=== PATIENT | male | born 1945 | race Caucasian/White ===

== ENCOUNTER 2024-08-08 13:44 | Emergency (ER) | payer MEDICARE, OTHER ==
[2024-08-08 14:31] LABS: Absolute Basophils 0.1 K/uL (0-0.5); Absolute Eosinophils 0.1 K/uL (0-0.5); Absolute Lymphocytes (CBC) 1.4 K/uL (0.7-4.9); Absolute Monocytes 0.4 K/uL (0.1-1.3); Absolute Neutrophil 3.8 K/uL (1.8-8.0); Basophils % 1.3 % (0-1.3); Eosinophils % 1.6 % (0-4.4); Hematocrit 35.4 % (39.6-49.0); Hemoglobin 12.3 g/dL (13.6-17.9); Lymphocytes % 23.6 % (15.3-44.8); MCH 31.4 pg (27.0-35.0); MCHC 34.7 g/dL (32.0-36.0); MCV 90.6 fL (80-100); MPV 7.8 fL (7.6-11.3); Monocytes % 7.3 % (3.3-12.3); Neutrophils % 66.2 % (41.7-73.7); Nucleated Red Blood Cells % 0.1 % (0-0); Platelets 222 thou/uL (152-406); RBC Red Blood Cell Count 3.91 M/uL (4.33-5.43); Red Cell Distribution Width 13.4 % (12.1-15.2)
--- NOTE | 2024-08-08 14:32 | RAD REPORT ---
EXAM: CT brain without contrast HISTORY: Ataxia COMPARISON: 2014 TECHNIQUE: Multiple contiguous axial images were obtained and a CT of the brain without contrast. Sagittal and coronal reformats were performed. Automated exposure control, adjustment of the mA and/or kV according to patient size, and/or itera tive reconstruction. Unless otherwise specified, incidental findings do not require dedicated imaging follow-u FINDINGS: Small increased density left parietal lobe probably calcification. 3.5 cm area of gliosis right parietal lobe Ventricles are normal caliber No extra-axial fluid collection noted No fluid within the visualized sinuses or mastoids noted. IMPRESSION: Small area of increased density left parietal lobe probably calcification. A bleed is considered less likely. If the patient's symptoms do not improve then a follow-up MRI would be recommended. No acute abnormality suspected. Jaleesa Benjamin from the emergency room was contacted at 2:23 PM August 08, 2024
[2024-08-08 14:33] LABS: PT Prothrombin Time 14.3 SECONDS (9.4-12.5); PTT, Activated Partial Thromb 32.9 SECONDS (24.3-36.9); Protime INR 1.29
--- NOTE | 2024-08-08 14:48 | RAD REPORT ---
EXAMINATION: CTA HEAD CLINICAL INDICATION: Ataxia TECHNIQUE: Axial CT images were obtained through the head after 100 cc Isovue-370 intravenous contras t utilizing angiographic protocol with 3D post-processing (maximum intensity projection images, volume rendered images and/or shaded surface rendered images). One or more of the following dose red uction techniques were used: Automated exposure control, adjustment of the mA and/or kV according to patient size, and/or iterative reconstruction. Unless otherwise specified, incidental findings do not require dedicated imaging follow-up. COMPARISON: None FINDINGS: Distal internal carotid, basilar, anterior cerebral, middle cerebral and posterior cerebral arteries do not demonstrate a significant stenosis An aneurysm not noted IMPRESSION: No acute vascular abnormality displayed
--- NOTE | 2024-08-08 14:48 | RAD REPORT ---
EXAMINATION: Neck Angio CLINICAL INDICATION: Ataxia. TECHNIQUE: Axial CT images were obtained from the aortic arch to the skull base after intravenous adm inistration of 100 cc Isovue-370 utilizing angiographic protocol. Multiplanar reformats, as well as 3D post-processing (maximum intensity projection images, volume rendered images and/or shaded surface rendered images) were generated and reviewed. One or more of the following dose reduction techniques were used: Automated exposure control, adjustment of the mA and/or kV according to patient size, and/or iterative reconstruction. Unless otherwise specified, incidental findings do not require dedicated imaging follow-up. COMPARISON: No prior exam. FINDINGS: The visualized aortic arch and great vessels do not demonstrate a significant abnormality Moderate calcified plaque proximal left internal carotid artery. Moderate calcified plaque proximal right internal carotid artery. Vertebral arteries unremarkable. No dissection/significant stenosis. Remainder of the arteries do not demonstrate a Methods for NASCET criteria: mild stenosis, 0% to 49%; moderate, 50% to 69%; severe stenosis, 70% to 99% IMPRESSION: Moderate plaque within the proximal internal carotid arteries bilaterally resulting in an approximate ly 60-65% stenosis
[2024-08-08 14:51] LABS: ALT/SGPT 23 U/L (16-61); AST/SGOT 18 U/L (15-37); Albumin 3.4 g/dL (3.4-5.0); Alkaline Phosphatase 64 U/L (45-117); Anion Gap 8.4 mEq/L (5.0-15.0); BUN Blood Urea Nitrogen 19 mg/dL (7-18); Bicarbonate 27 mEq/L (21-32); Bilirubin Direct < 0.2 mg/dL (0-0.2); Bilirubin Indirect, Calculated 0.3 mg/dL (0.2-0.8); Bilirubin Total 0.5 mg/dL (0.2-1.0); Globulin 3.4 g/dL (2.3-3.5); Glomerular Filtration Rate 48 ml/min (=/>90); Glucose Level 134 mg/dL (74-106); Magnesium 2.1 mg/dL (1.6-2.4); Potassium 4.4 mEq/L (3.5-5.1); Protein, Total 6.8 g/dL (6.4-8.2); Sodium Level 138 mEq/L (136-145); Troponin High Sensitivity 5.4 pg/mL (<58.9)
[2024-08-08] MEDS ORDERED: NA CHLORIDE 0.9% 1,000 ML ONE (15:02)
--- NOTE | 2024-08-08 15:31 | RAD REPORT ---
Procedure: Chest Single View History: CVA Comparison: 2019 Findings: The lungs appear clear of acute infiltrate. No significant pleural effusion noted. The heart is normal size. Moderate hiatal hernia. IMPRESSION: No acute abnormality is displayed.
[2024-08-08 16:48] LABS: Specific Gravity 1.029 (1.005-1.030); Sqamous Epithelial None Seen /HPF (None Seen); Urine Bacteria None Seen /HPF (<20); Urine Bilirubin NEGATIVE (Negative); Urine Blood Negative (Negative); Urine Clarity Clear (Clear); Urine Color Light-Yellow (Yellow); Urine Culture Reflex Order NOT NEEDED; Urine Glucose NEGATIVE (Negative); Urine Ketones NEGATIVE (Negative); Urine Micro Reflex YN NO BILL MICROSCOPIC; Urine Mucus Slight /HPF (None Seen); Urine Nitrite NEGATIVE (Negative); Urine Protein NEGATIVE (Negative); Urine RBC <5 /HPF (None Seen); Urine Urobilinogen Normal (Normal); Urine WBC <5 /HPF (<5)
[2024-08-08 16:54] LABS: Barbiturates NEGATIVE (NEGATIVE); Benzodiazepines NEGATIVE (NEGATIVE); Cocaine NEGATIVE (NEGATIVE); METHAMPHETAM NEGATIVE (NEGATIVE); Methadone NEGATIVE (NEGATIVE); Opiates NEGATIVE (NEGATIVE); Phencyclidine NEGATIVE (NEGATIVE); THC Cannibis NEGATIVE (NEGATIVE)
--- NOTE | 2024-08-08 17:23 | RAD REPORT ---
EXAMINATION: MRI BRAIN WITHOUT CONTRAST CLINICAL INDICATION: Dizziness TECHNIQUE: Multiplanar multisequence MR images of the brain were obtained without intravenous contras t. Unless otherwise specified, incidental findings do not require dedicated imaging follow-up. COMPARISON: Head CT August 08, 2024. FINDINGS: Abnormal signal right parietal lobe having the appearance of gliosis. The adjacent right lateral vent ricle is dilated secondary to loss. Gradient echo sequences demonstrates areas of low signal within the right parietal lobe as well as a few within the left cerebrum compatible with hemosiderin due to old blood. No evidence of an acute bleed. Diffusion weighted/ADC mapping do not demonstrate evidence of an acute infarction. No hydrocephalus. No extra-axial fluid collection. No fluid within the sinuses/mastoid seen IMPRESSION: No acute abnormalities displayed
--- NOTE | 2024-08-08 17:58 | EDPHYS ---
Physician Documentation [facility] Name: Israel Cantor Age: 79 yrs Sex: Male : 1945 Arrival Date: 08/08/2024 Time: 13:44 Bed 13 Private MD: ED Physician Raymond Florence HPI: 08/08 14:10 This 79 yrs old Male presents to ER via Ambulatory with complaints of Dizziness, sb4 Trouble Remembering things. 14:10 Patient states that he has been having issues remembering things for the past few sb4 months but today when he was at work he stated that he became dizzy and he could barely remember how to get home. states that he is not acting himself, seems disoriented. Patient is a poor historian, cannot really characterize his symptoms. He denies any blurry vision, gait disturbance, imbalance, chest pain, shortness of breath, nausea, vomiting. He is unsure when his symptoms started, maybe around 8:00 this morning. Historical: - PMHx: 13:58 Hypertensive disorder; clotting disorder; tm6 - PSHx: 13:58 None; tm6 - Immunization history:: Adult Immunizations up to date. - Infectious Disease History:: Denies. - Social history:: Smoking status: Patient denies any tobacco usage or history of. ROS: 14:10 Constitutional: Negative for fever, chills, and weight loss, sb4 14:10 Neuro: Positive for dizziness, 14:10 All other systems are negative, Exam: 14:10 Head/Face: Normocephalic, atraumatic. Eyes: Extra-ocular motions intact. Periorbital sb4 areas with no swelling, redness, or edema. ENT: Mucous membranes moist. Cardiovascular: Regular rate and rhythm with a normal S1 and S2. Respiratory: Lungs have equal breath sounds bilaterally, clear to auscultation and percussion. No rales, rhonchi or wheezes noted. No increased work of breathing, no retractions or nasal flaring. Abdomen/GI: Soft, non-tender, no distension. Skin: Warm, dry with normal turgor. Normal color with no rashes, no lesions, and no evidence of cellulitis. MS/ Extremity: Pulses equal, no cyanosis. Neurovascular intact. Full, normal range of motion. 14:10 Constitutional: The patient appears in no acute distress, alert, awake, 14:10 Neuro: Orientation: to person, place, time \T\ situation. Motor: moves all fours, Sensation: is normal, Gait: is steady, at a normal pace, without difficulty, seizure activity, is not displayed by the patient, Abnormal movements: there are no abnormal movements, Vital Signs: 13:52 BP 127 / 65; Pulse 81; Resp 17; Temp 98.9; Pulse Ox 98% on R/A; MAP 82 mmHg; Weight tm6 81.65 kg; Height 5 ft. 11 in. ; Pain 0/10; 15:11 BP 122 / 67; Pulse 61; Resp 17; Pulse Ox 99% on R/A; rs5 18:00 BP 125 / 70; Pulse 65; Resp 17; Pulse Ox 99% on R/A; rs5 13:52 Body Mass Index 25.10 (81.65 kg, 180.34 cm) tm6 13:52 Pain Scale: Adult tm6 NIH Stroke Scale Scores: 14:22 NIHSS Score: 0 sb4 14:33 NIHSS Score: 0 es3 15:20 NIHSS Score: 0 rs5 MDM: 13:47 Patient medically screened. sb4 23:57 Data reviewed: vital signs, nurses notes, lab test result(s), EKG, radiologic studies, sb4 and as a result, I will discharge patient. Consideration of Admission/Observation Escalation of care including admission/observation considered. Historians other than the Patient: Spouse/Significant Other: . Daughter/Son: daughter. Care significantly affected by the following chronic conditions: Hypertension. Counseling: I had a detailed discussion with the patient and/or guardian regarding the historical points, exam findings, and any diagnostic results supporting the discharge/admit diagnosis, lab results, radiology results, the need for outpatient follow up, a neurologist, to return to the emergency department if symptoms worsen or persist or if there are any questions or concerns that arise at home. ED course: discussed at length with patient and family member the negative results of workup. states that it is possible he had a TIA but additionally could be developing dementia. I offered admission for further workup, neuro consult, and monitoring, but patient declined. He wishes to go home and will follow up with PCP and neuro. 08/08 14:02 Order name: Basic Metabolic Panel; Complete Time: 14:52 sb4 08/08 14:02 Order name: CBC with Diff; Complete Time: 14:52 4 08/08 14:02 Order name: Hepatic Function; Complete Time: 14:52 4 08/08 14:02 Order name: High Sensitivity Troponin; Complete Time: 14:52 4 08/08 14:02 Order name: Magnesium; Complete Time: 14:52 4 08/08 14:02 Order name: Protime (+inr); Complete Time: 14:34 4 08/08 14:02 Order name: Ptt, Activated; Complete Time: 14:34 4 08/08 14:02 Order name: UDS; Complete Time: 16:55 4 08/08 14:16 Order name: Glucose, Ancillary Testing; Complete Time: 14:17 EDMS 08/08 14:21 Order name: UAM; Complete Time: 16:49 4 08/08 14:33 Order name: Glucose, Ancillary Testing; Complete Time: 14:34 EDMS 08/08 14:57 Order name: CREATININE WHOLE BLOOD; Complete Time: 14:58 EDMS 08/08 14:02 Order name: CT Neck Angio; Complete Time: 14:49 4 08/08 14:02 Order name: CT Stroke Brain w/o Contrast; Complete Time: 14:34 4 08/08 14:02 Order name: Stroke CXR 1 View; Complete Time: 15:32 4 08/08 14:06 Order name: Head angio; Complete Time: 14:49 EDMS 08/08 15:37 Order name: Brain Wo Cont; Complete Time: 17:27 EDMS 08/08 14:02 Order name: EKG; Complete Time: 14:02 4 08/08 14:02 Order name: Accucheck; Complete Time: 14:17 4 08/08 14:02 Order name: Cardiac monitoring; Complete Time: 15:01 4 08/08 14:02 Order name: EKG - Nurse/Tech; Complete Time: 15:01 4 08/08 14:02 Order name: IV Saline Lock; Complete Time: 15:02 4 08/08 14:02 Order name: Labs collected and sent; Complete Time: 15:02 4 08/08 14:02 Order name: O2 Per Protocol; Complete Time: 15:02 4 08/08 14:02 Order name: O2 Sat Monitoring; Complete Time: 15:02 sb4 08/08 14:02 Order name: Stroke Swallow Screen; Complete Time: 15:02 sb4 EC:40 Rate is 75 beats/min. Rhythm is regular, Sinus Rhythm. MS interval is normal at 192 sb4 msec. QRS interval is normal at 92 msec. QT interval is normal at 418 msec. No Q waves. T waves are Normal. No ST changes noted. Clinical impression: No evidence of ischemia. Interpreted by me. Reviewed by me. Administered Medications: 15:05 Drug: NS 0.9% IV 1000 ml IV at 1 bolus Per protocol; to be given as a bolus over 60 rs5 minutes Route: IV; Rate: 1 bolus; Site: right antecubital; 18:07 Follow up: Response: No adverse reaction; IV Status: Completed infusion tm6 Disposition Summary: 08/08/24 17:57 Discharge Ordered Notes: Location: Home sb4 Problem: new sb4 Symptoms: are unchanged sb4 Condition: Stable sb4 Diagnosis - Transient alteration of awareness sb4 Followup: sb4 - With: Hao Novak MD - When: 2 - 3 days - Reason: Recheck today's complaints, Re-evaluation by your physician Discharge Instructions: - Discharge Summary Sheet sb4 - Transient Ischemic Attack, [id number] sb4 Forms: - Patient Portal Instructions sb4 - Leadership Thank You Letter sb4 NIH Stroke Scale - NIH Stroke Score Date: 08/08/2024 Time: 14:22 Total Score = 0 10. Dysarthria (speech clarity - read or repeat words) - 0(Normal) 11. Extinction and Inattention (visual/tactile/auditory/spatial/personal) - 0(No abnormality) 1a. Level of Consciousness (LOC) - 0(Alert) 1b. Level of Consciousness (LOC) (Month \T\ Age) - 0(Both) 1c. LOC Commands (Open \T\ Closes Eyes/Catalogue Maker) - 0(Both) 2. Best Gaze (Lateral Gaze Paresis) - 0(Normal) 3. Visual Field Loss - 0(No visual loss) 4. Facial Palsy - 0(Normal) 5a. Left Arm: Motor (10-second hold) - 0(No drift) 5b. Right Arm: Motor (10-second hold) - 0(No drift) 6a. Left Leg: Motor (5-second hold - always test supine) - 0(No drift) 6b. Right Leg: Motor (5-second hold - always test supine) - 0(No drift) 7. Limb Ataxia (finger/nose \T\ heel/renteria - test with eyes open) - 0(Absent) 8. Sensory Loss (pinprick arms/legs/face) - 0(Normal) 9. Best Language: Aphasia (description/naming/reading) - 0(No aphasia) Initials: sb4 NIH Stroke Scale - NIH Stroke Score Date: 08/08/2024 Time: 14:33 Total Score = 0 10. Dysarthria (speech clarity - read or repeat words) - 0(Normal) 11. Extinction and Inattention (visual/tactile/auditory/spatial/personal) - 0(No abnormality) 1a. Level of Consciousness (LOC) - 0(Alert) 1b. Level of Consciousness (LOC) (Month \T\ Age) - 0(Both) 1c. LOC Commands (Open \T\ Closes Eyes/Catalogue Maker) - 0(Both) 2. Best Gaze (Lateral Gaze Paresis) - 0(Normal) 3. Visual Field Loss - 0(No visual loss) 4. Facial Palsy - 0(Normal) 5a. Left Arm: Motor (10-second hold) - 0(No drift) 5b. Right Arm: Motor (10-second hold) - 0(No drift) 6a. Left Leg: Motor (5-second hold - always test supine) - 0(No drift) 6b. Right Leg: Motor (5-second hold - always test supine) - 0(No drift) 7. Limb Ataxia (finger/nose \T\ heel/renteria - test with eyes open) - 0(Absent) 8. Sensory Loss (pinprick arms/legs/face) - 0(Normal) 9. Best Language: Aphasia (description/naming/reading) - 0(No aphasia) Initials: es3 NIH Stroke Scale - NIH Stroke Score Date: 08/08/2024 Time: 15:20 Total Score = 0 10. Dysarthria (speech clarity - read or repeat words) - 0(Normal) 11. Extinction and Inattention (visual/tactile/auditory/spatial/personal) - 0(No abnormality) 1a. Level of Consciousness (LOC) - 0(Alert) 1b. Level of Consciousness (LOC) (Month \T\ Age) - 0(Both) 1c. LOC Commands (Open \T\ Closes Eyes/Catalogue Maker) - 0(Both) 2. Best Gaze (Lateral Gaze Paresis) - 0(Normal) 3. Visual Field Loss - 0(No visual loss) 4. Facial Palsy - 0(Normal) 5a. Left Arm: Motor (10-second hold) - 0(No drift) 5b. Right Arm: Motor (10-second hold) - 0(No drift) 6a. Left Leg: Motor (5-second hold - always test supine) - 0(No drift) 6b. Right Leg: Motor (5-second hold - always test supine) - 0(No drift) 7. Limb Ataxia (finger/nose \T\ heel/renteria - test with eyes open) - 0(Absent) 8. Sensory Loss (pinprick arms/legs/face) - 0(Normal) 9. Best Language: Aphasia (description/naming/reading) - 0(No aphasia) Initials: rs5 Addendum: 08/10/2024 07:04 I was immediately available for consultation during this patient's visit. I did ec2 not personally see the patient or discuss the patient with the DONTA. . Signatures: Dispatcher [employer] Jaleesa Vazquez PA-C PA-C sb4 Irvin Mcqueen, REGINALD RN rs5 Raymond Florence MD MD ec2 Jose Mendoza RN RN tm6 Corrections: (The following items were deleted from the chart) 08/08 14:17 14:02 NPO ordered. sb4 sb4 15:37 15:06 MR STROKE PROTOCOL+MRI.RAD.BRZ ordered. EDMS EDMS
--- NOTE | 2024-08-08 17:58 | ER ---
Nurse's Notes [facility] Name: Israel Cantor Age: 79 yrs Sex: Male : 1945 Arrival Date: 08/08/2024 Time: 13:44 Bed 13 Private MD: Diagnosis: Transient alteration of awareness Presentation: 08/08 13:53 Chief complaint: Patient states: this morning about 0830 sometime I started to feel tm6 dizzy, lightheaded, my eyes feel like they are moving around. Trouble remembering things, but has been on and off for months. Coronavirus screen: Client denies travel out of the [place] in the last 14 days. Ebola Screen: Patient negative for fever greater than or equal to 101.5 degrees Fahrenheit, and additional compatible Ebola Virus Disease symptoms Patient denies exposure to infectious person. Patient denies travel to an Ebola-affected area in the 21 days before illness onset. No symptoms or risks identified at this time. Initial Sepsis Screen: Does the patient meet any 2 criteria? No. Patient's initial sepsis screen is negative. Does the patient have a suspected source of infection? No. Patient's initial sepsis screen is negative. Risk Assessment: Do you want to hurt yourself or someone else?. Onset of symptoms was August 08, 2024. 13:53 Method Of Arrival: Ambulatory tm6 13:53 Acuity: NOEMY 3 tm6 Triage Assessment: 13:55 General: Appears in no apparent distress. Behavior is calm, cooperative. Pain: Denies tm6 pain. EENT: Reports "eyes moving around" , denies blurry vision. Neuro: Level of Consciousness is awake, alert, obeys commands, Oriented to person, place, time, situation, Reports dizziness, since 0830 not feeling right. Cardiovascular: Reports lightheadedness, Patient's skin is warm and dry. Respiratory: Airway is patent Respiratory effort is even, unlabored, Respiratory pattern is regular, symmetrical. GI: No signs and/or symptoms were reported involving the gastrointestinal system. Abdomen is flat, non-distended. : No signs and/or symptoms were reported regarding the genitourinary system. Derm: No signs and/or symptoms reported regarding the dermatologic system. Musculoskeletal: No signs and/or symptoms reported regarding the musculoskeletal system. Historical: - PMHx: 13:58 Hypertensive disorder; clotting disorder; tm6 - PSHx: 13:58 None; tm6 - Immunization history:: Adult Immunizations up to date. - Infectious Disease History:: Denies. - Social history:: Smoking status: Patient denies any tobacco usage or history of. Screenin:44 [facility] ED Fall Risk Assessment (Adult) History of falling in the last 3 months, rs5 including since admission Yes- single mechanical fall (1 pt) Confusion or Disorientation No (0 pts) Intoxicated or Sedated No (0 pts) Impaired Gait Yes (1 pt) Mobility Assist Device Used Yes (1 pt) Altered Elimination No (0 pt) Score/Fall Risk Level 3 or more points = High Risk Oriented to surroundings, Maintained a safe environment, Hourly rounding (assess needs \\T\\ fall precautionary measures) done, Utilized family, sitter, or virtual outside sales account executive as indicated. 13:44 Abuse screen: Denies threats or abuse. Nutritional screening: No deficits noted. rs5 Tuberculosis screening: No symptoms or risk factors identified. 14:33 VAN Screening: Arm Drift: Patient shows no arm weakness. Patient is VAN negative. es3 Visual Disturbance: No visual disturbance noted. Aphasia: No aphasia noted. Neglect: No neglect noted. [place] Swallow Protocol Brief Cognitive Screen What is your name? Normal, Where are you right now? Normal, What year is it? Normal. Oral Mechanism Examination Facial Symmetry: Normal, Motion: Normal, Lip Closure: Normal, Oral Mechanism Result: Normal. 3 oz Water Swallow Challenge: Pt able to drink all water without stopping, coughing, choking or throat clearing: Yes Result: PASS MD Notified: Raymond Florence MD. Assessment: 14:17 General: Appears in no apparent distress. comfortable, Behavior is calm, cooperative. rs5 Pain: Denies pain. Neuro: Level of Consciousness is awake, alert, obeys commands, Oriented to person, place, time, situation, Folder Operator are equal bilaterally Moves all extremities. Gait is unsteady, Speech is normal, Facial symmetry appears normal, Pupils are PERRLA, Pupil Size: 3 mm Intact Reports dizziness. 14:17 Cardiovascular: Patient's skin is warm and dry. Respiratory: Airway is patent rs5 Respiratory effort is even, unlabored, Respiratory pattern is regular, symmetrical. GI: Abdomen is round non-distended, Abd is soft and non tender X 4 quads. : No signs and/or symptoms were reported regarding the genitourinary system. EENT: No signs and/or symptoms were reported regarding the EENT system. Derm: Skin is intact, Skin is pink, warm \\T\\ dry. Musculoskeletal: Range of motion: intact in all extremities, pt reports generalized weakness. 15:11 Reassessment: Patient and/or family updated on plan of care and expected duration. Pain rs5 level reassessed. Patient is alert, oriented x 3, equal unlabored respirations, skin warm/dry/pink. 16:20 Reassessment: Patient and/or family updated on plan of care and expected duration. Pain rs5 level reassessed. Patient is alert, oriented x 3, equal unlabored respirations, skin warm/dry/pink. Vital Signs: 13:52 BP 127 / 65; Pulse 81; Resp 17; Temp 98.9; Pulse Ox 98% on R/A; MAP 82 mmHg; Weight tm6 81.65 kg; Height 5 ft. 11 in. ; Pain 0/10; 15:11 BP 122 / 67; Pulse 61; Resp 17; Pulse Ox 99% on R/A; rs5 18:00 BP 125 / 70; Pulse 65; Resp 17; Pulse Ox 99% on R/A; rs5 13:52 Body Mass Index 25.10 (81.65 kg, 180.34 cm) tm6 13:52 Pain Scale: Adult tm6 NIH Stroke Scale Scores: 14:22 NIHSS Score: 0 sb4 14:33 NIHSS Score: 0 es3 15:20 NIHSS Score: 0 rs5 ED Course: 13:46 Patient arrived in ED. mg5 13:47 Jaleesa Benjamin PA-C is PHCP. sb4 13:47 Raymond Florence MD is Attending Physician. sb4 13:55 Triage completed. tm6 13:55 Arm band placed on left wrist. tm6 14:15 CT Stroke Brain w/o Contrast In Process Unspecified. EDMS 14:17 Patient has correct armband on for positive identification. Placed in gown. Bed in low rs5 position. Call light in reach. Side rails up X2. 14:20 No provider procedures requiring assistance completed. Inserted saline lock: 22 gauge rs5 in right antecubital area, using aseptic technique. 14:22 CT Neck Angio In Process Unspecified. EDMS 14:22 Head angio In Process Unspecified. EDMS 15:01 Irvin Mcqueen, RN is Primary Nurse. rs5 15:16 Stroke CXR 1 View In Process Unspecified. EDMS 16:55 Brain Wo Cont In Process Unspecified. EDMS 17:57 Hao Novak MD is Referral Physician. sb4 18:00 Provided Education on: discharge instructions . rs5 18:07 IV discontinued, intact, bleeding controlled, No redness/swelling at site. Pressure tm6 dressing applied. Administered Medications: 15:05 Drug: NS 0.9% IV 1000 ml IV at 1 bolus Per protocol; to be given as a bolus over 60 rs5 minutes Route: IV; Rate: 1 bolus; Site: right antecubital; 18:07 Follow up: Response: No adverse reaction; IV Status: Completed infusion tm6 Medication: 14:17 VIS not applicable for this client. rs5 Outcome: 17:57 Discharge ordered by MD. sb4 18:07 Discharged to home ambulatory, tm6 18:07 Condition: stable 18:07 Discharge instructions given to patient, Instructed on discharge instructions, follow up and referral plans. Demonstrated understanding of instructions, follow-up care, 18:07 Patient left the ED. tm6 NIH Stroke Scale - NIH Stroke Score Date: 08/08/2024 Time: 14:22 Total Score = 0 10. Dysarthria (speech clarity - read or repeat words) - 0(Normal) 11. Extinction and Inattention (visual/tactile/auditory/spatial/personal) - 0(No abnormality) 1a. Level of Consciousness (LOC) - 0(Alert) 1b. Level of Consciousness (LOC) (Month \\T\\ Age) - 0(Both) 1c. LOC Commands (Open \\T\\ Closes Eyes/Laboratory Technologist) - 0(Both) 2. Best Gaze (Lateral Gaze Paresis) - 0(Normal) 3. Visual Field Loss - 0(No visual loss) 4. Facial Palsy - 0(Normal) 5a. Left Arm: Motor (10-second hold) - 0(No drift) 5b. Right Arm: Motor (10-second hold) - 0(No drift) 6a. Left Leg: Motor (5-second hold - always test supine) - 0(No drift) 6b. Right Leg: Motor (5-second hold - always test supine) - 0(No drift) 7. Limb Ataxia (finger/nose \\T\\ heel/renteria - test with eyes open) - 0(Absent) 8. Sensory Loss (pinprick arms/legs/face) - 0(Normal) 9. Best Language: Aphasia (description/naming/reading) - 0(No aphasia) Initials: sb4 NIH Stroke Scale - NIH Stroke Score Date: 08/08/2024 Time: 14:33 Total Score = 0 10. Dysarthria (speech clarity - read or repeat words) - 0(Normal) 11. Extinction and Inattention (visual/tactile/auditory/spatial/personal) - 0(No abnormality) 1a. Level of Consciousness (LOC) - 0(Alert) 1b. Level of Consciousness (LOC) (Month \\T\\ Age) - 0(Both) 1c. LOC Commands (Open \\T\\ Closes Eyes/Laboratory Technologist) - 0(Both) 2. Best Gaze (Lateral Gaze Paresis) - 0(Normal) 3. Visual Field Loss - 0(No visual loss) 4. Facial Palsy - 0(Normal) 5a. Left Arm: Motor (10-second hold) - 0(No drift) 5b. Right Arm: Motor (10-second hold) - 0(No drift) 6a. Left Leg: Motor (5-second hold - always test supine) - 0(No drift) 6b. Right Leg: Motor (5-second hold - always test supine) - 0(No drift) 7. Limb Ataxia (finger/nose \\T\\ heel/renteria - test with eyes open) - 0(Absent) 8. Sensory Loss (pinprick arms/legs/face) - 0(Normal) 9. Best Language: Aphasia (description/naming/reading) - 0(No aphasia) Initials: es3 NIH Stroke Scale - NIH Stroke Score Date: 08/08/2024 Time: 15:20 Total Score = 0 10. Dysarthria (speech clarity - read or repeat words) - 0(Normal) 11. Extinction and Inattention (visual/tactile/auditory/spatial/personal) - 0(No abnormality) 1a. Level of Consciousness (LOC) - 0(Alert) 1b. Level of Consciousness (LOC) (Month \\T\\ Age) - 0(Both) 1c. LOC Commands (Open \\T\\ Closes Eyes/Laboratory Technologist) - 0(Both) 2. Best Gaze (Lateral Gaze Paresis) - 0(Normal) 3. Visual Field Loss - 0(No visual loss) 4. Facial Palsy - 0(Normal) 5a. Left Arm: Motor (10-second hold) - 0(No drift) 5b. Right Arm: Motor (10-second hold) - 0(No drift) 6a. Left Leg: Motor (5-second hold - always test supine) - 0(No drift) 6b. Right Leg: Motor (5-second hold - always test supine) - 0(No drift) 7. Limb Ataxia (finger/nose \\T\\ heel/renteria - test with eyes open) - 0(Absent) 8. Sensory Loss (pinprick arms/legs/face) - 0(Normal) 9. Best Language: Aphasia (description/naming/reading) - 0(No aphasia) Initials: rs5 Signatures: Dispatcher [employer] EDJaleesa Nair PA-C PA-C sb4 Irvin Mcqueen RN RN rs5 Devi Singh mg5 Jose Mendoza RN RN tm6 Sheyla Matthews RN RN es3 Corrections: (The following items were deleted from the chart) 13:56 13:53 Chief complaint: Patient states: this morning sometime I started to feel tm6 dizzy, lightheaded, my eyes feel like they are moving around. Trouble remembering things, but has been on and off for months tm6 15:12 13:44 [facility] ED Fall Risk Assessment (Adult) History of falling in the last 3 rs5 months, including since admission Yes- single mechanical fall (1 pt) Confusion or Disorientation Yes (5 pts) Intoxicated or Sedated No (0 pts) Impaired Gait Yes (1 pt) Mobility Assist Device Used Yes (1 pt) Altered Elimination No (0 pt) Score/Fall Risk Level 3 or more points = High Risk Oriented to surroundings, Maintained a safe environment, Hourly rounding (assess needs \\T\\ fall precautionary measures) done, Utilized family, sitter, or virtual outside sales account executive as indicated rs5 18:36 16:20 BP 125 / 70; Pulse 65bpm; Resp 17bpm; Pulse Ox 99% RA; rs5 rs5
[2024-08-08 21:23] VITALS: BP 127/65; TEMP 98.9; O2SAT 98
--- NOTE | 2024-08-14 12:16 | EKG ---
Test Date: 2024-08-08 Test Time: 14:38:44 Dance Historian: ZAIDA MEASUREMENT RESULTS: Intervals: Rate: 75 CT: 192 QRSD: 92 QT: 418 QTc: 466 [place]: P: 69 CT: 192 QRS: -10 T: 18 INTERPRETIVE STATEMENTS: Sinus rhythm with premature supraventricular complexes Otherwise normal ECG Compared to ECG 09/11/2018 11:48:32 Atrial premature complex(es) now present Electronically Signed On 08-14-24 12:01:08 CDT by Reed Hernandez
== END 2024-08-08 18:07 | disposition home or self-care (01) ==
LOC: ER 13:44
DX: R40.4 Transient alteration of awareness (principal); I10 Essential (primary) hypertension
CPT/HCPCS: 93005; 85025; 81001; 80048; 36415; 83735; 85610; 82565; 82947 ×2; 80076; 85730; 84484; 80307; 70496; 70498; 70450; 71045; 70551; Q9967; J7030; 96360; 96361; 99284

== ENCOUNTER 2025-01-24 08:59 | Emergency (ER) | payer OTHER ==
--- NOTE | 2025-01-24 09:44 | RAD REPORT ---
EXAMINATION: TWO VIEW CHEST XR CLINICAL INDICATION: Male, 79 years old. [facility] MAIN PAIN Bed Name: 1 TECHNIQUE: 2 view radiographs of the chest were performed. COMPARISON: 08/08/2024 FINDINGS: Developing peripheral left basal streaky opacities could relate to progressive atelectasis or develop ing pneumonia. Background hyper inflation. Suboptimal inspiratory effort somewhat limits evaluation. No pneumothorax or sizable effusion. The heart is normal in size. Mediastinal contours ar e unchanged with large hiatal hernia again seen. IMPRESSION: Developing left basal streaky opacities could relate to progressive atelectasis or developing pneumon ia.
[2025-01-24 10:00] LABS: Absolute Basophils 0.1 K/uL (0-0.5); Absolute Eosinophils 0.1 K/uL (0-0.5); Absolute Lymphocytes (CBC) 1.5 K/uL (0.7-4.9); Absolute Monocytes 0.4 K/uL (0.1-1.3); Absolute Neutrophil 3.8 K/uL (1.8-8.0); Basophils % 1.3 % (0-1.3); Eosinophils % 2.2 % (0-4.4); Hematocrit 38.6 % (39.6-49.0); Hemoglobin 13.1 g/dL (13.6-17.9); MCH 30.5 pg (27.0-35.0); MCHC 33.9 g/dL (32.0-36.0); MPV 7.6 fL (7.6-11.3); Monocytes % 7.5 % (3.3-12.3); Nucleated Red Blood Cells % 0.1 % (0-0); Platelets 275 thou/uL (152-406); RBC Red Blood Cell Count 4.29 M/uL (4.33-5.43); Red Cell Distribution Width 14.1 % (12.1-15.2)
[2025-01-24] MEDS ORDERED: ONDANSETRON 4 MG/2 ML VIAL ONE (10:08)
[2025-01-24] MEDS ORDERED: NA CHLORIDE 0.9% 1,000 ML ONE (10:09)
[2025-01-24] MEDS ORDERED: MAGNES/ALUMIN/SIMET 30ML UCUP ONE (10:09)
[2025-01-24] MEDS ORDERED: LIDOCAINE VISCOUS 2% 10ML ORAL SOLN ONE (10:09)
[2025-01-24] MEDS ORDERED: KETOROLAC 30 MG/ML INJ ONE (10:09)
[2025-01-24 10:14] LABS: Albumin 3.5 g/dL (3.4-5.0); Anion Gap 11.3 mEq/L (5.0-15.0); Bilirubin Total 0.5 mg/dL (0.2-1.0); Globulin 3.6 g/dL (2.3-3.5); Magnesium 2.1 mg/dL (1.6-2.4); Potassium 4.3 mEq/L (3.5-5.1); Protein, Total 7.1 g/dL (6.4-8.2); Troponin High Sensitivity 3.1 pg/mL (<58.9)
[2025-01-24] MEDS ORDERED: AMOX/K CLAV 875 MG TAB ONE (10:50)
[2025-01-24] MEDS ORDERED: AZITHROMYCIN 250 MG TAB ONE (10:50)
--- NOTE | 2025-01-24 11:08 | EDPHYS ---
Physician Documentation [facility] Name: Israel Cantor Age: 79 yrs Sex: Male : 1945 Arrival Date: 01/24/2025 Time: 08:59 Bed 8 Private MD: ED Physician Niki Block HPI: 01/24 09:16 This 79 yrs old Male presents to ER via Ambulatory with complaints of Back dr5 Pain. 09:16 The patient presents with pain and spasm, tightness, and tenderness. The symptoms are dr5 located in the right scapular area and right subscapular area. Onset: The symptoms/episode began/occurred yesterday. Patient is an 79 year old male with hx of hypertension coming in for right upper back pain, belching, and nausea that started yesterday. Patient is currently taking Losartan and Eliquis. Patient denies taking any medication prior to arrival. Patient denies fever, cough, congestion, diarrhea, or abdominal pain.. Historical: - Allergies: 09:12 No Known Allergies; hb - PMHx: 09:12 clotting disorder; Hypertensive disorder; hb - Immunization history:: Adult Immunizations up to date. - Infectious Disease History:: Denies. - Social history:: Smoking status: . ROS: 09:16 Constitutional: as per hpi dr5 Exam: 09:16 Constitutional: This is a well developed, well nourished patient who is awake, alert, dr5 and in no acute distress. Head/Face: Normocephalic, atraumatic. ENT: Nares patent. No nasal discharge, no septal abnormalities noted. Tympanic membranes are normal and external auditory canals are clear. Oropharynx with no redness, swelling, or masses, exudates, or evidence of obstruction, uvula midline. Mucous membranes moist. Chest/axilla: Normal chest wall appearance and motion. Nontender with no deformity. No lesions are appreciated. Cardiovascular: Regular rate and rhythm with a normal S1 and S2. Normal PMI, no JVD. No pulse deficits. Respiratory: Lungs have equal breath sounds bilaterally, clear to auscultation. No rales, rhonchi or wheezes noted. No increased work of breathing, no retractions or nasal flaring. Back: No spinal tenderness. No costovertebral tenderness. Full range of motion. Mild right upper back tenderness to palpation. Skin: Warm, dry with normal turgor. Normal color with no rashes, no lesions, and no evidence of cellulitis. Neuro: Awake and alert, GCS 15, oriented to person, place, time, and situation. Cranial nerves II-XII grossly intact. Motor strength 5/5 in all extremities. Sensory grossly intact. Cerebellar exam normal. Normal gait. Vital Signs: 09:10 BP 120 / 66; Pulse 70; Resp 16; Temp 98.4; Pulse Ox 99% ; hb 10:57 BP 128 / 67; Pulse 63; Resp 15; Pulse Ox 100% ; bp 11:15 BP 138 / 56; Pulse 89; Resp 16; Pulse Ox 97% on R/A; Pain 0/10; iw 11:15 Pain Scale: Adult iw MDM: 09:03 Medical Screening Exam initiated dr5 11:42 Differential diagnosis: Fatigue GERD, Pneumonia, NSTEMI, MD. Data reviewed: vital dr5 signs, nurses notes. I considered the following discharge prescriptions or medication management in the emergency department Medications were administered in the Emergency Department. See MAR. Historians other than the Patient: Spouse/Significant Other: . Daughter/Son: Daughter. Care significantly affected by the following chronic conditions: Hypertension. Care significantly affected by the following Social Determinants of Health: Poor access to healthcare and/or lack of insurance, Poor access to transportation, Problems related to employment. Counseling: I had a detailed discussion with the patient and/or guardian regarding the historical points, exam findings, and any diagnostic results supporting the discharge/admit diagnosis, the presence of at least one elevated blood pressure reading (>120/80) during this emergency department visit, lab results, radiology results, the need for outpatient follow up, for definitive care, a family practitioner, to return to the emergency department if symptoms worsen or persist or if there are any questions or concerns that arise at home. Medication response: Toradol relieved patient's pain. The symptoms have resolved. ED course: Patient found to have a developing pneumonia on left side. First dose of antibiotics given in ER. Patient reports that his pain has resolved and is feeling much better. Patient is requesting go home on antibiotics. The patient EKG and troponin were negative. Chest x-ray discussed with patient. GI cocktail has resolved burping. Discussed likely GERD and to continue taking Nexium. Patient has doctors appointment with PCP on Sunday. Results and radiology results all printed and put in discharge report for patient to take to Sunday. All questions answered and strict ER precautions given.. 01/24 09:11 Order name: CBC with Diff; Complete Time: 10:32 [facility] 01/24 09:11 Order name: Magnesium; Complete Time: 10:32 [facility] 01/24 09:11 Order name: Troponin HS; Complete Time: 10:32 [facility] 01/24 09:11 Order name: CMP; Complete Time: 10: [facility] 01/24 09:11 Order name: Lipase; Complete Time: 10: [facility] 01/24 09:11 Order name: Chest Pa And Lat (2 Views) XRAY; Complete Time: 09:48 [facility] 01/24 09:11 Order name: EKG; Complete Time: 09:12 [facility] 01/24 09:11 Order name: Cardiac monitoring; Complete Time: :55 [facility] 01/24 09:11 Order name: EKG - Nurse/Tech; Complete Time: 09:33 [facility] 01/24 09:11 Order name: IV Saline Lock; Complete Time: :55 [facility] 01/24 09:11 Order name: Labs collected and sent; Complete Time: : [facility] 01/24 09:11 Order name: O2 Per Protocol; Complete Time: : [facility] 01/24 09:11 Order name: O2 Sat Monitoring; Complete Time: :55 [facility] EC: Rate is 69 beats/min. Rhythm is regular. QRS [place] is Normal. [place] interval is normal at dr5 196 msec. QRS interval is normal at 98 msec. QT interval is normal at 410 msec. Administered Medications: 09:30 Drug: GI Cocktail without - (Maalox PO 30 ml, Lidocaine Mucous Membrane 2 % 15 bp ml) PO once Route: PO; 10:56 Follow up: Response: No adverse reaction bp 10:13 Drug: Ketorolac IVP 15 mg IVP once Route: IVP; Site: right antecubital; bp 10:57 Follow up: Response: No adverse reaction bp 10:13 Drug: NS 0.9% IV 1000 ml IV at 1000 ml once; to be given as a bolus over 60 minutes bp Route: IV; Rate: 1000 ml; Site: right antecubital; 11:14 Follow up: IV Status: Order to discontinue infusion iw 10:13 Drug: Ondansetron IVP 4 mg IVP once; over 2 minutes Route: IVP; Site: right antecubital;bp 10:57 Follow up: Response: No adverse reaction bp 10:56 Drug: Amoxicillin-Clavulanate PO 875 mg PO once Route: PO; bp 11:15 Follow up: Response: No adverse reaction iw 10:56 Drug: AZITHromycin PO 500 mg PO once Route: PO; bp 11:15 Follow up: Response: No adverse reaction iw Disposition Summary: 01/24/25 11:08 Discharge Ordered Notes: Location: Home dr5 Condition: Stable dr5 Diagnosis - Unspecified bacterial pneumonia dr5 Followup: dr5 - With: Emergency Department - When: As needed - Reason: Worsening of condition Followup: dr5 - With: Private Physician - When: 1 - 2 days - Reason: Recheck today's complaints, Continuance of care, Re-evaluation by your physician Discharge Instructions: - Discharge Summary Sheet dr5 - Community-Acquired Pneumonia, Adult dr5 Forms: - Medication Reconciliation Form dr5 - Antibiotic Education dr5 - Patient Portal Instructions dr5 - Leadership Thank You Letter dr5 Prescriptions: - Augmentin 875-125 mg Oral Tablet - take 1 tablet ORAL route every 12 hours for 10 days; 20 tablet; Refills: 0, dr5 Product Selection Permitted - Zithromax Z-Jacob 250 mg Oral tablet - take 1 tablet ORAL route once daily for 4 days Start on 01/25/25.; 4 tablet; dr5 Refills: 0, Product Selection Permitted - methocarbamol 750 mg Oral tablet - take 1 tablet ORAL route 3 times per day As needed; 20 tablet; Refills: 0, dr5 Product Selection Permitted Signatures: Dispatcher [employer] EDAmarilys Gonzalez RN RN iw Baxter, Heather, RN RN Rito Campbell RN RN bp Yosvany Gonzalez, ARCHITECTURAL DRAFTSPERSON-C ARCHITECTURAL DRAFTSPERSON-Cdr5 Corrections: (The following items were deleted from the chart) 09:12 09:12 CBC+H.LAB.BRZ ordered. EDMS EDMS 09:12 09:12 MAGNESIUM+C.LAB.BRZ ordered. EDMS EDMS 09:12 09:12 Troponin High Sensitivity+C.LAB.BRZ ordered. EDMS EDMS 09:12 09:12 COMPREHENSIVE METABOLIC PANEL+C.LAB.BRZ ordered. EDMS EDMS 09:12 09:12 LIPASE+C.LAB.BRZ ordered. EDMS EDMS
--- NOTE | 2025-01-24 11:08 | ER ---
Nurse's Notes [facility] Name: Israel Cantor Age: 79 yrs Sex: Male : 1945 Arrival Date: 01/24/2025 Time: 08:59 Bed 8 Private MD: Diagnosis: Unspecified bacterial pneumonia Presentation: 01/24 09:10 Chief complaint: Right upper back pain, belching, and nausea x 1 day. Coronavirus hb screen: At this time, the client does not indicate any symptoms associated with coronavirus-19. Ebola Screen: No symptoms or risks identified at this time. Initial Sepsis Screen: Does the patient meet any 2 criteria? No. Patient's initial sepsis screen is negative. Does the patient have a suspected source of infection? No. Patient's initial sepsis screen is negative. Risk Assessment: Do you want to hurt yourself or someone else? Patient reports no desire to harm self or others. Onset of symptoms was January 24, 2025. 09:10 Method Of Arrival: Ambulatory hb 09:10 Acuity: NOEMY 3 hb Triage Assessment: 09:15 General: Appears in no apparent distress. Behavior is calm, cooperative, appropriate bp for age. Pain: Complains of pain in right subscapular area. EENT: No deficits noted. Neuro: No deficits noted. Cardiovascular: Rhythm is sinus rhythm. Respiratory: No deficits noted. GI: No signs and/or symptoms were reported involving the gastrointestinal system. : No signs and/or symptoms were reported regarding the genitourinary system. Derm: No deficits noted. Musculoskeletal: Reports pain in right subscapular area. Historical: - Allergies: 09:12 No Known Allergies; hb - PMHx: 09:12 clotting disorder; Hypertensive disorder; hb - Immunization history:: Adult Immunizations up to date. - Infectious Disease History:: Denies. - Social history:: Smoking status: . Screenin:52 [facility] ED Fall Risk Assessment (Adult) History of falling in the last 3 months, iw including since admission No falls in past 3 months (0 pts) Confusion or Disorientation No (0 pts) Intoxicated or Sedated No (0 pts) Impaired Gait No (0 pts) Mobility Assist Device Used No (0 pt) Altered Elimination No (0 pt) Score/Fall Risk Level 0 - 2 = Low Risk Oriented to surroundings, Maintained a safe environment. Abuse screen: Denies threats or abuse. Nutritional screening: No deficits noted. Tuberculosis screening: No symptoms or risk factors identified. Assessment: 09:51 General: Appears in no apparent distress. Behavior is calm, cooperative. Pain: iw Complains of pain in right subscapular area and right scapular area. Neuro: Level of Consciousness is awake, alert, obeys commands, Oriented to person, place, time, situation, Moves all extremities. Full function. Cardiovascular: Denies chest pain, Patient's skin is warm and dry. Respiratory: Respiratory effort is even, unlabored, Respiratory pattern is regular, symmetrical. GI: Abdomen is non-distended. EENT:. Derm: Skin is intact, is fragile, is thin. Derm: Musculoskeletal: Range of motion: intact in all extremities. 10:59 Reassessment: Patient appears in no apparent distress at this time. Patient is alert, bp oriented x 3, equal unlabored respirations, skin warm/dry/pink. 11:13 Reassessment: Patient appears in no apparent distress at this time. Patient and/or iw family updated on plan of care and expected duration. Pain level reassessed. Patient is alert, oriented x 3, equal unlabored respirations, skin warm/dry/pink. Patient denies pain at this time. Patient states feeling better. Patient states symptoms have improved. Vital Signs: 09:10 BP 120 / 66; Pulse 70; Resp 16; Temp 98.4; Pulse Ox 99% ; hb 10:57 BP 128 / 67; Pulse 63; Resp 15; Pulse Ox 100% ; bp 11:15 BP 138 / 56; Pulse 89; Resp 16; Pulse Ox 97% on R/A; Pain 0/10; iw 11:15 Pain Scale: Adult iw ED Course: 09:02 Patient arrived in ED. mr 09:03 Yosvany Gonzalez, [facility] 09:03 Niki Block MD is Attending Physician. dr5 09:12 Triage completed. hb 09:13 Arm band placed on. hb 09:14 Rito Campbell, RN is Primary Nurse. bp 09:25 Chest Pa And Lat (2 Views) XRAY In Process Unspecified. EDMS 09:33 EKG done, by ED staff, reviewed by Yosvany HOLLINS. nh2 09:51 Initial lab(s) drawn, by me, sent to lab. Inserted saline lock: 20 gauge in right iw antecubital area, using aseptic technique. Blood collected. Flushed with 10 mL NS 09:54 Patient has correct armband on for positive identification. Provided Education on: . iw Client placed on continuous cardiac and pulse oximetry monitoring. NIBP monitoring applied. monitor worker on. 11:14 No provider procedures requiring assistance completed. iw Administered Medications: 09:30 Drug: GI Cocktail without - (Maalox PO 30 ml, Lidocaine Mucous Membrane 2 % 15 bp ml) PO once Route: PO; 10:56 Follow up: Response: No adverse reaction bp 10:13 Drug: Ketorolac IVP 15 mg IVP once Route: IVP; Site: right antecubital; bp 10:57 Follow up: Response: No adverse reaction bp 10:13 Drug: NS 0.9% IV 1000 ml IV at 1000 ml once; to be given as a bolus over 60 minutes bp Route: IV; Rate: 1000 ml; Site: right antecubital; 11:14 Follow up: IV Status: Order to discontinue infusion iw 10:13 Drug: Ondansetron IVP 4 mg IVP once; over 2 minutes Route: IVP; Site: right antecubital;bp 10:57 Follow up: Response: No adverse reaction bp 10:56 Drug: Amoxicillin-Clavulanate PO 875 mg PO once Route: PO; bp 11:15 Follow up: Response: No adverse reaction iw 10:56 Drug: AZITHromycin PO 500 mg PO once Route: PO; bp 11:15 Follow up: Response: No adverse reaction iw Medication: 09:52 VIS not applicable for this client. iw Outcome: 11:08 Discharge ordered by . dr5 11:14 Discharged to home ambulatory, with family, iw 11:14 Condition: good 11:14 Discharge instructions given to patient, family, Instructed on discharge instructions, follow up and referral plans. medication usage, Demonstrated understanding of instructions, follow-up care, medications, Prescriptions given X 3, 11:15 Patient left the ED. iw Signatures: Dispatcher [employer] EDAZ Tasneem Mosqueda, Krish Reg mr Amarilys Pagan RN REGINALD iw Ivonne Christiansen RN RN hb Peltier, Brian, RN RN bp Rick Talamantes, Yosvany Samson, FIELD [employer]-C FI[employer]-Cdr5
[2025-01-24 11:33] VITALS: TEMP 98.4
[2025-01-24 11:40] VITALS: BP 138/56; O2SAT 97
--- NOTE | 2025-01-26 11:24 | EKG ---
Test Date: 2025-01-24 Test Time: 09:29:19 Chef Kitchen Manager: MARIA DE JESUS MEASUREMENT RESULTS: Intervals: Rate: 69 SC: 196 QRSD: 98 QT: 410 QTc: 439 [place]: P: 64 SC: 196 QRS: -33 T: 29 INTERPRETIVE STATEMENTS: Sinus rhythm with marked sinus arrhythmia Left axis deviation Abnormal ECG Compared to ECG 08/08/2024 14:38:44 Left-axis deviation now present Atrial premature complex(es) no longer present Electronically Signed On 01-26-25 11:19:26 CDT by Reed Hernandez
== END 2025-01-24 11:15 | disposition home or self-care (01) ==
LOC: ER 08:59
DX: J15.9 Unspecified bacterial pneumonia (principal); I10 Essential (primary) hypertension
CPT/HCPCS: 85025; 36415; 83735; 84484; 83690; 80053; 71046; J2405; J7030; 93005; 96361; 96374; 96375; 99285

== ENCOUNTER 2025-06-17 00:29 | Emergency (ER) | payer OTHER ==
[2025-06-17] MEDS ORDERED: NA CHLORIDE 0.9% 1,000 ML ONE (01:49)
[2025-06-17] MEDS ORDERED: NA CHLORIDE 0.9% 500 ML ONE (01:49)
[2025-06-17 02:41] LABS: ALT/SGPT 25.0 U/L (16-61); AST/SGOT 17.0 U/L (15-37); Albumin 3.7 g/dL (3.4-5.0); Albumin/Globulin Ratio 1.0 (1.1-1.8); Alkaline Phosphatase 75.0 U/L (45-117); Anion Gap 12.0 mEq/L (5.0-15.0); BUN Blood Urea Nitrogen 32.0 mg/dL (7-18); Globulin 3.6 g/dL (2.3-3.5); Glucose Level 128.0 mg/dL (74-106); Lipase 40.0 U/L (13-75); Potassium 4.0 mEq/L (3.5-5.1)
[2025-06-17 02:44] LABS: PT Prothrombin Time 15.9 SECONDS (10-13.0); Protime INR 1.42
[2025-06-17 02:48] LABS: Absolute Lymphocytes (CBC) 1.9 K/uL (0.7-4.9); Hematocrit 36.4 % (39.6-49.0); Hemoglobin 12.8 g/dL (13.6-17.9); MCH 31.3 pg (27.0-35.0); MCHC 35.0 g/dL (32.0-36.0); MCV 89.2 fL (80-100); MPV 8.4 fL (7.6-11.3); Nucleated RBC Absolute Count 0.0 (0-0); Nucleated Red Blood Cells % 0.0 % (0-0); RBC Red Blood Cell Count 4.08 M/uL (4.33-5.43); White Blood Count 9.10 thou/uL (4.3-10.9)
--- NOTE | 2025-06-17 04:18 | RAD REPORT ---
INDICATION: right inguinal hernia COMPARISON: No existing relevant imaging studies are available TECHNIQUE: Unenhanced CT of the abdomen and pelvis performed per protocol. Oral contrast was not administered. M ultiplanar reconstructions were provided. Dose reduction techniques were utilized for this exam including automated exposure control, adjustmen ts to mA and/or kV according to patient's size, and the use of iterative reconstruction techniques. FINDINGS: Lack of intravenous contrast limits evaluation of the viscera and vasculature. LOWER CHEST: Bibasilar subsegmental atelectasis. Coronary arterial calcifications. LIVER: 2.8 x 2.5 cm indeterminate hypodense lesion within the inferior right hepatic lobe. Liver othe rwise unremarkable. SPLEEN: Unremarkable. PANCREAS: Unremarkable. ADRENALS: Unremarkable. KIDNEYS: Unremarkable. GALLBLADDER: Unremarkable. VESSELS: Scattered atherosclerotic plaque within the abdominal aorta and iliac vessels without aneury smal dilatation. BOWEL: Large hiatal hernia containing the majority of the stomach. Moderate volume colonic stool lio en. Colonic diverticulosis without evidence of diverticulitis. No bowel obstruction. APPENDIX: No pericecal inflammatory changes to suggest appendicitis. FLUID: No free fluid or abnormal fluid collection. ADENOPATHY: No pathologic adenopathy. BLADDER: Large right inguinal hernia containing the right anterior aspect of the bladder which is mil dly distended, fat, and a small amount of fluid. PELVIS: Prostate is enlarged. BONES: No acute bony abnormality. Multilevel degenerative changes throughout the spine. SOFT TISSUES: Smaller fat-containing left inguinal hernia. Fatty atrophy of the posterior leg muscula ture, more prominent on the right. IMPRESSION: 1. Large right inguinal hernia containing the right anterior aspect of the bladder which is mildly distended, fat , and a small amount of fluid. 2. Large hiatal hernia containing the majority of the stomach. 3. 2.8 cm indeterminate hypodense lesion within the inferior right hepatic lobe. Recommend further evaluation with nonemergent outpatient MRI liver mass protocol. 4. Prostatomegaly. Electronically signed by: Ammon Collins DO 06/17/2025 04:11 AM CDT NR Due to temporary technical issues with the PACS/Ushi reporting system, reports are being alfredo d by the in-house radiologist without review as a courtesy to ensure prompt reporting the interpreting radiologist is fully responsible for the content of the report. Transcribed Date/Time: 06/17/2025 4:17 AM
--- NOTE | 2025-06-17 04:57 | ER ---
Nurse's Notes [facility] Name: Israel Cantor Age: 80 yrs Sex: Male : 1945 Arrival Date: 06/17/2025 Time: 00:29 Bed 14 Private MD: Diagnosis: Subacute right inguinal hernia with partial urinary bladder prolapse, acute on chronic right groin pain Presentation: 06/17 00:37 Chief complaint: Patient states: RIGHT GROIN PAIN FOR THE LAST 3 DAYS. PT HAS HAD br2 HERNIA FOR OVER 1 YEAR. Coronavirus screen: Client denies travel out of the [place] in the last 14 days. Ebola Screen: Patient denies exposure to infectious person. Initial Sepsis Screen: Does the patient meet any 2 criteria? No. Patient's initial sepsis screen is negative. Does the patient have a suspected source of infection? No. Patient's initial sepsis screen is negative. Risk Assessment: Do you want to hurt yourself or someone else? Patient reports no desire to harm self or others. Onset of symptoms is unknown. 00:37 Method Of Arrival: Ambulatory br2 00:37 Acuity: NOEMY 3 br2 Triage Assessment: 00:38 General: Appears in no apparent distress. comfortable, Behavior is calm, cooperative. br2 Pain: Complains of pain in right femoral area Pain currently is 5 out of 10 on a pain scale. Historical: - Allergies: 00:38 Aspirin; br2 - PMHx: 00:38 clotting disorder; Hypertensive disorder; PROSTATE CANCER (Hypertensive disorder); br2 - Immunization history:: Adult Immunizations not up to date. - Infectious Disease History:: Denies. - Social history:: Smoking status: Patient/guardian denies using tobacco, the patient reports quitting approximately 30 years ago, Patient uses alcohol, occasionally. Patient/guardian denies using street drugs. - Family history:: not pertinent. Screenin:[address] [facility] ED Fall Risk Assessment (Adult) History of falling in the last 3 months, kt5 including since admission No falls in past 3 months (0 pts) Confusion or Disorientation No (0 pts) Intoxicated or Sedated No (0 pts) Impaired Gait No (0 pts) Mobility Assist Device Used No (0 pt) Altered Elimination No (0 pt) Score/Fall Risk Level 0 - 2 = Low Risk Oriented to surroundings, Maintained a safe environment, Educated pt \T\ family on fall prevention, incl call for assistance when getting out of bed, Assessed \T\ reinforced patient's understanding of fall precautions. Abuse screen: Denies threats or abuse. Denies injuries from another. Nutritional screening: No deficits noted. Tuberculosis screening: No symptoms or risk factors identified. Assessment: 01:58 General: Appears in no apparent distress. comfortable, Behavior is calm, cooperative. kt5 Pain: Complains of pain in groin, right femoral area and right inguinal area Pain radiates to right lower quadrant Pain at worst was 4 out of 10 on a pain scale. Quality of pain is described as throbbing, Pain began 2-3 days ago. Is continuous, Aggravated by increased activity. Neuro: No deficits noted. Lamb Agitation-Sedation Scale (RASS): 0 - Alert and Calm Level of Consciousness is awake, alert, obeys commands, Oriented to person, place, time, situation. Cardiovascular: No deficits noted. Reports None Denies chest pain, Heart tones S1 S2 present Capillary refill < 3 seconds is brisk Clubbing of nail beds is absent JVD is absent Patient's skin is warm and dry. Respiratory: No deficits noted. Airway is patent Respiratory effort is even, unlabored, Respiratory pattern is regular, symmetrical. GI: Abdomen is non-distended, Bowel sounds present X 4 quads. Abdomen is tender to palpation in right lower quadrant Reports lower abdominal pain, gaseousness. GI: lower right side adb pain with right side inguinal hernia noted, swelling noted to both testicle more swelling noted to right side. : No deficits noted. No signs and/or symptoms were reported regarding the genitourinary system. EENT: No deficits noted. Derm: No deficits noted. No signs and/or symptoms reported regarding the dermatologic system. Skin is intact, is healthy with good turgor, Skin is dry, Skin is normal, Skin temperature is warm. Musculoskeletal: No deficits noted. No signs and/or symptoms reported regarding the musculoskeletal system. Circulation, motion, and sensation intact. Range of motion: intact in all extremities. 03:17 Reassessment: Patient appears in no apparent distress at this time. No changes from kt5 previously documented assessment. Patient and/or family updated on plan of care and expected duration. Pain level reassessed. Patient is alert, oriented x 3, equal unlabored respirations, skin warm/dry/pink. Patient denies pain at this time. Patient states feeling better. 04:34 Reassessment: Patient appears in no apparent distress at this time. No changes from kt5 previously documented assessment. Patient and/or family updated on plan of care and expected duration. Pain level reassessed. Patient is alert, oriented x 3, equal unlabored respirations, skin warm/dry/pink. Patient denies pain at this time. Patient states feeling better. Patient states symptoms have improved. Vital Signs: 00:37 BP 151 / 78; Pulse 97; Resp 18 S; Pulse Ox 100% on R/A; Weight 72.57 kg; Height 5 ft. br2 11 in. ; Pain 5/10; 01:58 BP 141 / 70; Pulse 69; Resp 16 S; Pulse Ox 98% on R/A; kt5 03:17 BP 133 / 78; Pulse 64; Resp 18 S; Pulse Ox 99% on R/A; kt5 04:35 BP 125 / 79; Pulse 66; Resp 18; Pulse Ox 98% ; kt5 00:37 Body Mass Index 22.32 (72.57 kg, 180.34 cm) br2 00:37 Pain Scale: Adult br2 Radha Coma Score: 19:07 Eye Response: spontaneous(4). Motor Response: obeys commands(6). Verbal Response: sp4 oriented(5). Total: 15. ED Course: 00:31 Patient arrived in ED. im 00:38 Triage completed. br2 00:38 Arm band placed on right wrist. br2 00:45 Shane Carpenter MD is Attending Physician. sp4 01:57 PT-INR Sent. kt5 01:57 CBC with Diff Sent. kt5 01:57 CMP Sent. kt5 01:57 Lipase Sent. kt5 01:58 Patient has correct armband on for positive identification. Placed in gown. Bed in low kt5 position. Call light in reach. Side rails up X 1. Client placed on continuous cardiac and pulse oximetry monitoring. NIBP monitoring applied. Door closed. Noise minimized. Warm blanket given. Pillow given. Family accompanied patient. 01:58 Inserted saline lock: 20 gauge in right antecubital area, using aseptic technique. kt5 Blood collected. Flushed with 10 mL NS. 02:30 Able, Jailyn, RN is Primary Nurse. lg3 03:[address] via stretcher. kt5 03:45 Abdomen In Process Unspecified. EDMS 04:52 UA W/ Microscopic Sent. kt5 04:56 Abdon Olvera MD is Referral Physician. sp4 04:57 No provider procedures requiring assistance completed. IV discontinued, intact, kt5 bleeding controlled, No redness/swelling at site. Pressure dressing applied. 05:07 Provided Education on: DISCHARGE INSTRUCTIONS. kt5 Administered Medications: 01:56 Drug: NS 0.9% IV 500 ml 500 ml IV at 1 bolus once; to be given as a bolus over 30 kt5 minutes Volume: 500 ml; Route: IV; Rate: 1 bolus; Site: left forearm; 02:39 Follow up: Response: No adverse reaction kt5 05:06 Follow up: IV Status: Completed infusion; IV Intake: 500ml kt5 05:06 Follow up: Response: No adverse reaction kt5 02:39 Drug: NS 0.9% IV 1000 ml IV at 125 ml/hr once; to be given as a bolus over 60 minutes kt5 Route: IV; Rate: 125 ml/hr; Site: right forearm; 05:05 Follow up: IV Status: Completed infusion; IV Intake: 325ml kt5 Medication: 01:58 VIS not applicable for this client. kt5 Intake: 05:05 IV: 325ml; Total: 325ml. kt5 05:06 IV: 500ml; Total: 825ml. kt5 Outcome: 04:57 Discharge ordered by MD. sp4 04:57 Discharged to home ambulatory, with family, kt5 04:57 Condition: stable 04:57 Discharge instructions given to patient, family, Instructed on discharge instructions, follow up and referral plans. medication usage, Demonstrated understanding of instructions, follow-up care, medications, Prescriptions given X 2, 05:08 Patient left the ED. kt5 Signatures: Dispatcher [employer] EDMS Jailyn Chu RN RN lg3 Shane Carpenter MD MD sp4 Marie Cobos Belinda, RN RN br2 Rajwinder Gibbs, RN RN kt5 Corrections: (The following items were deleted from the chart) 02:32 01:58 Neuro: No deficits noted. Lamb Agitation-Sedation Scale (RASS): 0 - Alert and lg3 Calm Level of Consciousness is awake, alert, obeys commands, Oriented to person, place, time, situation, kt5 02:32 01:58 Derm: No deficits noted. No signs and/or symptoms reported regarding the lg3 dermatologic system. Skin is intact, is healthy with good turgor, Skin is dry, Skin is normal, Skin temperature is warm kt5 02:32 01:58 Musculoskeletal: No deficits noted. No signs and/or symptoms reported regarding lg3 the musculoskeletal system. Circulation, motion, and sensation intact. Range of motion: kt5
--- NOTE | 2025-06-17 04:57 | EDPHYS ---
Physician Documentation [facility] Name: Israel Cantor Age: 80 yrs Sex: Male : 1945 Arrival Date: 06/17/2025 Time: 00:29 Bed 14 Private MD: ED Physician Shane Carpenter HPI: 06/17 00:46 This 80 yrs old Male presents to ER via Ambulatory with complaints of Groin sp4 Pain - hernia. 19:06 Patient presents with worsening right inguinal pain right inguinal hernia. Patient sp4 states he has had this hernia for several months. However today pain and discomfort was worse.. Historical: - Allergies: 00:38 Aspirin; br2 - PMHx: 00:38 clotting disorder; Hypertensive disorder; PROSTATE CANCER (Hypertensive disorder); br2 - Immunization history:: Adult Immunizations not up to date. - Infectious Disease History:: Denies. - Social history:: Smoking status: Patient/guardian denies using tobacco, the patient reports quitting approximately 30 years ago, Patient uses alcohol, occasionally. Patient/guardian denies using street drugs. - Family history:: not pertinent. ROS: 19:06 Constitutional: Negative for fever, chills, and weight loss, positive for complaint sp4 of Right groin pain and bulging with inguinal hernia. 19:06 All other systems are negative, Exam: 19:07 Constitutional: Thin frail elderly gentleman. Moderate right inguinal bulge sp4 Head/Face: Normocephalic, atraumatic. Eyes: Pupils equal round and reactive to light, extra-ocular motions intact. Lids and lashes normal. Conjunctiva and sclera are not injected. Cornea within normal limits. Periorbital areas with no swelling, redness, or edema. ENT: Nares patent. No nasal discharge, no septal abnormalities noted. Tympanic membranes are normal and external auditory canals are clear. Oropharynx with no redness, swelling, or masses, exudates, or evidence of obstruction, uvula midline. Mucous membranes moist. Neck: Trachea midline, no thyromegaly or masses palpated, and no cervical lymphadenopathy. Supple, full range of motion without nuchal rigidity, or vertebral point tenderness. Chest/axilla: Normal chest wall appearance and motion. Nontender with no deformity. No lesions are appreciated. Cardiovascular: Regular rate and rhythm with a normal S1 and S2. No gallops, murmurs, or rubs. No pulse deficits. Respiratory: Lungs have equal breath sounds bilaterally, clear to auscultation and percussion. No rales, rhonchi or wheezes noted. No increased work of breathing, no retractions or nasal flaring. Abdomen/GI: Soft, with normal bowel sounds. No distension or tympany. No guarding or rebound. No evidence of tenderness throughout. Back: No spinal tenderness. No costovertebral tenderness. Male : Normal genitalia with no discharge or lesions. Patient has a moderate-sized right inguinal hernia with some contents present in the scrotum. Hernia is not reducible on exam. No sign of discoloration, no mass, no signs of obstruction Skin: Warm, dry with normal turgor. Normal color with no rashes, no lesions, and no evidence of cellulitis. MS/ Extremity: Pulses equal, no cyanosis. Neurovascular intact. Full, normal range of motion. Neuro: Awake and alert, GCS 15, oriented to person, place, time, and situation. Cranial nerves II-XII grossly intact. Motor strength 5/5 in all extremities. Sensory grossly intact. Psych: Awake, alert, with orientation to person, place and time. Behavior, mood, and affect are within normal limits Vital Signs: 00:37 BP 151 / 78; Pulse 97; Resp 18 S; Pulse Ox 100% on R/A; Weight 72.57 kg; Height 5 ft. br2 11 in. ; Pain 5/10; 01:58 BP 141 / 70; Pulse 69; Resp 16 S; Pulse Ox 98% on R/A; kt5 03:17 BP 133 / 78; Pulse 64; Resp 18 S; Pulse Ox 99% on R/A; kt5 04:35 BP 125 / 79; Pulse 66; Resp 18; Pulse Ox 98% ; kt5 00:37 Body Mass Index 22.32 (72.57 kg, 180.34 cm) br2 00:37 Pain Scale: Adult br2 Radha Coma Score: 19:07 Eye Response: spontaneous(4). Motor Response: obeys commands(6). Verbal Response: sp4 oriented(5). Total: 15. MDM: 00:48 Medical Screening Exam initiated sp4 19:09 Differential diagnosis: nonspecific abdominal pain, UTI, urinary retention, Clancy sp4 catheter problem, prostatitis, urethritis, Inguinal hernia. Data reviewed: vital signs, nurses notes, lab test result(s), radiologic studies, CT scan. 19:11 Consideration of Admission/Observation Escalation of care including sp4 admission/observation considered. ED course: INDICATION: right inguinal hernia COMPARISON: No existing relevant imaging studies are available TECHNIQUE: Unenhanced CT of the abdomen and pelvis performed per protocol. Oral contrast was not administered. Multiplanar reconstructions were provided. Dose reduction techniques were utilized for this exam including automated exposure control, adjustments to mA and/or kV according to patient's size, and the use of iterative reconstruction techniques. FINDINGS: Lack of intravenous contrast limits evaluation of the viscera and vasculature. LOWER CHEST: Bibasilar subsegmental atelectasis. Coronary arterial calcifications. LIVER: 2.8 x 2.5 cm indeterminate hypodense lesion within the inferior right hepatic lobe. Liver otherwise unremarkable. SPLEEN: Unremarkable. PANCREAS: Unremarkable. ADRENALS: Unremarkable. KIDNEYS: Unremarkable. GALLBLADDER: Unremarkable. VESSELS: Scattered atherosclerotic plaque within the abdominal aorta and iliac vessels without aneurysmal dilatation. BOWEL: Large hiatal hernia containing the majority of the stomach. Moderate volume colonic stool burden. Colonic diverticulosis without evidence of diverticulitis. No bowel obstruction. APPENDIX: No pericecal inflammatory changes to suggest appendicitis. FLUID: No free fluid or abnormal fluid collection. ADENOPATHY: No pathologic adenopathy. BLADDER: Large right inguinal hernia containing the right anterior aspect of the bladder which is mildly distended, fat, and a small amount of fluid. PELVIS: Prostate is enlarged. BONES: No acute bony abnormality. Multilevel degenerative changes throughout the spine. SOFT TISSUES: Smaller fat-containing left inguinal hernia. Fatty atrophy of the posterior leg musculature, more prominent on the right. IMPRESSION: 1. Large right inguinal hernia containing the right anterior aspect of the bladder which is mildly distended, fat , and a small amount of fluid. 2. Large hiatal hernia containing the majority of the stomach. 3. 2.8 cm indeterminate hypodense lesion within the inferior right hepatic lobe. Recommend further evaluation with nonemergent outpatient MRI liver mass protocol. 4. Prostatomegaly. Electronically signed by: Ammon Collins DO 06/17/2025 04:11. ED course: Patient's hernia contains approximately half of urinary bladder which is prolapsing anteriorly on the right side. Patient was informed that this is a fairly complicated problem and does not warrant emergent surgery. Patient was advised to follow-up with Dr. Abdon Olvera with urology for further consultation and planning for surgery.. 06/17 00:48 Order name: CBC with Diff; Complete Time: 04:46 sp4 06/17 00:48 Order name: CMP; Complete Time: 04:46 sp4 06/17 00:48 Order name: Lipase; Complete Time: 04:46 sp4 06/17 00:48 Order name: UA W/ Microscopic; Complete Time: 19:10 sp4 06/17 01:34 Order name: PT-INR; Complete Time: 04:46 sp4 06/17 03:31 Order name: Abdomen ; Complete Time: 19:10 EDMS 06/17 00:48 Order name: IV Saline Lock; Complete Time: 02:09 sp4 06/17 00:48 Order name: Labs collected and sent; Complete Time: 01:57 sp4 06/17 01:34 Order name: NPO; Complete Time: 02:09 sp4 Administered Medications: 01:56 Drug: NS 0.9% IV 500 ml 500 ml IV at 1 bolus once; to be given as a bolus over 30 kt5 minutes Volume: 500 ml; Route: IV; Rate: 1 bolus; Site: left forearm; 02:39 Follow up: Response: No adverse reaction kt5 05:06 Follow up: IV Status: Completed infusion; IV Intake: 500ml kt5 05:06 Follow up: Response: No adverse reaction kt5 02:39 Drug: NS 0.9% IV 1000 ml IV at 125 ml/hr once; to be given as a bolus over 60 minutes kt5 Route: IV; Rate: 125 ml/hr; Site: right forearm; 05:05 Follow up: IV Status: Completed infusion; IV Intake: 325ml kt5 Disposition Summary: 06/17/25 04:57 Discharge Ordered Notes: No heavy lifting of any kind Location: Home sp4 Problem: new sp4 Symptoms: have improved sp4 Condition: Stable sp4 Diagnosis - Subacute right inguinal hernia with partial urinary bladder prolapse, acute on sp4 chronic right groin pain Followup: sp4 - With: Abdon Olvera MD - When: 7 - 10 days - Reason: Recheck today's complaints Discharge Instructions: - Discharge Summary Sheet sp4 - Inguinal Hernia, Adult, [id number] sp4 Forms: - Patient Portal Instructions sp4 Prescriptions: - Tramadol 50 mg Oral tablet - take 1 tablet ORAL route every 8 hours as needed; 30 tablet; Refills: 0, sp4 Product Selection Permitted - ondansetron 8 mg Oral Tablet,disintegrating - take 1 tablet ORAL route every 8 hours PRN nausea; 30 tablet; Refills: 0, sp4 Product Selection Permitted Signatures: Dispatcher [employer] [facility] Shane Carpenter MD MD sp4 Jodie Maria RN RN br2 Rajwinder Gibbs RN RN kt5 Corrections: (The following items were deleted from the chart) 03:31 01:34 Abdomen Pelvis W [id number] ordered. [facility] EDUT 19:07 19:06 Patient presents with worsening right inguinal pain right inguinal hernia. sp4 Patient states he has had this hernia for several months. However today pain and discomfort was worse.. sp4
[2025-06-17 05:10] LABS: Sqamous Epithelial <5 /HPF (None Seen); Urine Micro Reflex YN NO BILL MICROSCOPIC
[2025-06-17 09:50] VITALS: BP 125/79; O2SAT 98
== END 2025-06-17 05:08 | disposition home or self-care (01) ==
LOC: ER 00:29
DX: K40.90 Unilateral inguinal hernia, without obstruction or gangrene, not specified as recurrent (principal); N32.89 Other specified disorders of bladder; R10.30 Lower abdominal pain, unspecified; I10 Essential (primary) hypertension; D75.89 Other specified diseases of blood and blood-forming organs; Z85.46 Personal history of malignant neoplasm of prostate; Z88.8 Allergy status to other drugs, medicaments and biological substances
CPT/HCPCS: 85025; 81001; 36415; 85610; 83690; 80053; 74176; J7040; J7030; 96360; 96361; 99285